=== PATIENT | male | born 1990 | race African-American/Black ===

== ENCOUNTER 2019-08-31 15:49 | Emergency (ER) | payer MEDICAID, OTHER ==
[~2019-08-31] VITALS: Ht 177.8 cm; Wt 77.0 kg
[2019-08-31] MEDS ORDERED: IBUPROFEN 600MG TABLET PO ONE (16:15)
[2019-08-31 16:36] VITALS: BP 141/79
== END 2019-08-31 16:37 | disposition home or self-care (01) ==
LOC: ER 15:49
DX: R68.89 Other general symptoms and signs (principal); Z90.49 Acquired absence of other specified parts of digestive tract
CPT/HCPCS: 99283